=== PATIENT | male | born 1950 | race Caucasian/White ===

== ENCOUNTER 2019-07-16 17:22 | Emergency (ER) | payer BC ==
[~2019-07-16] VITALS: Ht 182.9 cm; Wt 127.0 kg
[~2019-07-16 17:22] MED LIST: CETI10CA PO; LANS30TA6 PO; LISI5TAB7 PO; MONT10TA6 PO; SIMV20TA3 PO; TAMS-11 PO
[2019-07-16 17:24] VITALS: BP 132/85
[2019-07-16] MEDS ORDERED: DIPH,PERTUSS(ACELL),TET VAC/PF 0.5 ML IM-VACC ONE ×2 (17:53→18:00)
--- NOTE | 2019-07-16 17:59 | NUR ---
MEDS ADMIN PER SEP. TASK RN PROVIDED WOUND CARE ORDERED.
== END 2019-07-16 18:18 | disposition home or self-care (01) ==
LOC: ED 18:16
DX: S51.802A Unspecified open wound of left forearm, initial encounter (principal); G89.11 Acute pain due to trauma; X58.XXXA Exposure to other specified factors, initial encounter; Y93.89 Activity, other specified; Y92.89 Other specified places as the place of occurrence of the external cause; Y99.8 Other external cause status
CPT/HCPCS: 90471; 90715; 99282; 99283